=== PATIENT | male | born 1935 | race Caucasian/White ===

== ENCOUNTER → 2019-10-28 11:16 | Outpatient (CLI) | payer MEDICARE, OTHER, SELFPAY | PROVIDERS: PCP Family Medicine; Visit Provider Specialist | DX: C61 Malignant neoplasm of prostate (principal); N39.0 Urinary tract infection, site not specified; N39.3 Stress incontinence (female) (male) | CPT/HCPCS: 51798; 81002; 87077; 87086; 87186; 99214 ==

== ENCOUNTER → 2020-03-02 13:55 | Outpatient (CLI) | payer MEDICARE, OTHER, SELFPAY | PROVIDERS: PCP Family Medicine; Visit Provider Specialist | DX: C61 Malignant neoplasm of prostate (principal); N39.0 Urinary tract infection, site not specified; N39.3 Stress incontinence (female) (male); Z79.899 Other long term (current) drug therapy | CPT/HCPCS: 51798; 81002; 87077; 87086; 87186; 96372; 96402; 99214; J0897; J9217; M1145 ==

== ENCOUNTER → 2020-06-03 14:07 | Outpatient (CLI) | payer MEDICARE, OTHER, SELFPAY | PROVIDERS: PCP Family Medicine; Visit Provider Specialist | DX: N39.0 Urinary tract infection, site not specified (principal); C61 Malignant neoplasm of prostate; N39.3 Stress incontinence (female) (male) | CPT/HCPCS: 51798; 81002; 87077; 87086; 87186; 96402; 99214; J9217 ==

== ENCOUNTER → 2020-12-08 13:50 | Outpatient (CLI) | payer MEDICARE, OTHER, SELFPAY | PROVIDERS: PCP Family Medicine; Visit Provider Specialist | DX: N39.0 Urinary tract infection, site not specified (principal) | CPT/HCPCS: 87077; 87086; 87186 ==

== ENCOUNTER → 2021-09-06 14:06 | Outpatient (CLI) | payer MEDICARE, OTHER, SELFPAY | PROVIDERS: PCP Family Medicine; Visit Provider Specialist | DX: C61 Malignant neoplasm of prostate (principal); R97.21 Rising PSA following treatment for malignant neoplasm of prostate; R30.0 Dysuria; N39.3 Stress incontinence (female) (male); Z29.8 Encounter for other specified prophylactic measures | CPT/HCPCS: 81002; 87077; 87086; 87186; 96372; 96402; 99214; J0897; J9217 ==

== ENCOUNTER → 2022-03-07 14:56 | Outpatient (CLI) | payer MEDICARE, OTHER, SELFPAY | PROVIDERS: PCP Family Medicine; Visit Provider Specialist | DX: C61 Malignant neoplasm of prostate (principal); N39.3 Stress incontinence (female) (male); R97.21 Rising PSA following treatment for malignant neoplasm of prostate | CPT/HCPCS: 51798; 81002; 87086; 96372; 96402; 99214; J0897; J9217 ==